=== PATIENT | female | born 1970 | race Caucasian/White ===

== ENCOUNTER 2023-06-27 08:13 | Emergency (ER) | payer OTHER ==
[~2023-06-27] VITALS: Ht 162.6 cm; Wt 75.0 kg
[2023-06-27 08:22] VITALS: O2SAT 100
[2023-06-27 08:37] LABS: BASOPHILS % 0.3 % (0.0-2.0); EOSINOPHILS % 0.5 % (0.0-5.0); HEMATOCRIT. 29.4 % (36.0-48.0); HEMOGLOBIN. 9.7 g/dL (12.0-16.0); LYMPHOCYTES % 19.4 % (20.0-50.0); MEAN CORPUSCULAR HEMOGLOBIN 26.9 pg (28.0-32.0); MEAN CORPUSCULAR VOLUME 81.7 fL (81.0-99.0); MEAN PLATELET VOLUME 6.5 fl (7.4-10.4); MONOCYTES % 9.4 % (2.0-8.0); NEUTROPHILS % 70.4 % (40.0-76.0); PLATELET 540 x1000/uL (130-400); RED BLOOD CELL COUNT 3.59 mill/uL (4.2-5.4); RED CELL DISTRIBUTION WIDTH 15.8 % (11.6-14.6); WHITE BLOOD COUNT 10.5 x1000/uL (4.5-11.0)
[2023-06-27 08:54] LABS: HCG SCREEN NEGATIVE
[2023-06-27 08:56] LABS: ACETAMINOPHEN < 2 ug/mL (10-30); ALANINE AMINOTRANSFERASE 16 IU/L (10-49); ALBUMIN 3.2 g/dL (3.2-4.8); ASPARTATE AMINOTRANSFERASE 23 IU/L (<34); BILIRUBIN TOTAL 0.3 mg/dL (0.1-1.0); CALCIUM 8.5 mg/dL (8.7-10.4); CARBON DIOXIDE 29 mEq/L (21-32); CHLORIDE 103 mEq/L (98-107); CREATININE 0.6 mg/dL (0.6-1.0); GLUCOSE 91 mg/dL (70-105); POTASSIUM 4.2 mEq/L (3.5-5.1); PROTEIN TOTAL 7.7 g/dL (6.0-8.3); SODIUM 135 mEq/L (136-145); UREA NITROGEN BLOOD 9 mg/dL (9-23)
[2023-06-27 09:05] LABS: ETHANOL BLOOD < 10 mg/dL (<10)
[2023-06-27] MEDS: HALOPERIDOL LACTATE 5MG/ML VIAL IM ONE (09:56)
[2023-06-27] MEDS: DIPHENHYDRAMINE 50MG/ML VIAL IM ONE (09:56)
[2023-06-27 14:33] VITALS: TEMP 98.6
[2023-06-27 20:00] VITALS: BP 142/85; PULSE 75; RESP 12
[2023-06-28 11:12] LABS: *AMPHETAMINES SCREEN URINE NEGATIVE (NEGATIVE); *BARBITURATES SCREEN URINE NEGATIVE (NEGATIVE); *BENZODIAZEPINES SCREEN URINE NEGATIVE (NEGATIVE); *COCAINE SCREEN URINE NEGATIVE (NEGATIVE); CANNABINOID URINE SCREEN NEGATIVE (NEGATIVE); ECSTASY MDMA SCREEN URINE NEGATIVE (NEGATIVE); METHADONE URINE SCREEN Neg (NEGATIVE); OPIATES URINE SCREEN NEGATIVE (NEGATIVE); PHENCYCLIDINE URINE SCREEN NEGATIVE (NEGATIVE)
[2023-06-28] MEDS: QUETIAPINE FUMARATE 50MG TABLET PO SCH (15:34)
== END 2023-06-29 14:00 | disposition home or self-care (01) ==
LOC: EDBD 08:30 → ER 08:30
DX: R46.1 Bizarre personal appearance (principal); E05.00 Thyrotoxicosis with diffuse goiter without thyrotoxic crisis or storm; Z59.00 Homelessness unspecified
CPT/HCPCS: 80053; 80307; 80329; 80320; 84703; 85025; 36415; 96372; 99285; J1200; J1630; Z7610 ×2; G0480